=== PATIENT | female | born 1995 | race African-American/Black ===

== ENCOUNTER 2021-06-12 00:27 | Emergency (ER) | payer OTHER ==
[2021-06-12 00:52] VITALS: BP 146/83; PULSE 88; TEMP 97.8; BMI 29.0
[2021-06-12] MEDS ORDERED: ACETAMINOPHEN 325 MG TABLET (FP) PO ONE (02:26)
[2021-06-12] MEDS ORDERED: ACETAMINOPHEN 325 MG TABLET (FP) ONE (03:08)
== END 2021-06-12 04:29 | disposition home or self-care (01) ==
LOC: JER 00:27
DX: S00.83XA Contusion of other part of head, initial encounter (principal); V49.50XA Passenger injured in collision with unspecified motor vehicles in traffic accident, initial encounter
CPT/HCPCS: 70450-TC; 72125-TC; 99284-25